=== PATIENT | female | born 1930 | race Two or more races ===

== ENCOUNTER 2016-10-28 13:56 | Inpatient (IN) | payer MEDICARE, MEDICAID ==
[~2016-10-28] VITALS: Ht 165.1 cm; Wt 75.3 kg
[2016-10-28 14:42] LABS: BASOPHILS % (AUTO) 0.3 % (0.0-2.0); EOSINOPHILS % (AUTO) 0.3 % (0.0-6.0); HEMATOCRIT 43 % (33-45); LYMPHOCYTES # (AUTO) 1.3 /CMM (0.8-4.8); LYMPHOCYTES % (AUTO) 17.6 % (20.0-44.0); MEAN CORPUSCULAR HEMOGLOBIN 29 PG (26.0-33.0); MEAN CORPUSCULAR HGB CONC 33 g/dl (31.0-36.0); MEAN CORPUSCULAR VOLUME 89 fL (82-100); MONOCYTES # (AUTO) 0.5 /CMM (0.1-1.30); MONOCYTES % (AUTO) 7.3 % (2.0-12.0); NEUTROPHILS # (AUTO) 5.7 /CMM (1.8-8.9); NEUTROPHILS % (AUTO) 74.5 % (43.0-81.0); PLATELET COUNT (AUTO) 164 /CMM (150-450); RDW COEFFICIENT OF VARIATION 13.8 (11.5-15.0); RED BLOOD CELL COUNT(AUTO) 4.83 MIL/uL (4.0-5.2); WHITE BLOOD COUNT (AUTO) 7.5 K/uL (4.3-11.0)
[2016-10-28] MEDS ORDERED: MAG30ORA PO (14:48)
[2016-10-28] MEDS ORDERED: OXYB5TAB11 PO (14:48)
[2016-10-28] MEDS ORDERED: ACID1TAB12 PO (14:48)
[2016-10-28] MEDS ORDERED: AMIN30LI4 PO (14:48)
[2016-10-28] MEDS ORDERED: GABA-534 PO (14:48)
[2016-10-28] MEDS ORDERED: FAMO20TA8 PO (14:48)
[2016-10-28] MEDS ORDERED: METO25TA20 PO (14:48)
[2016-10-28] MEDS ORDERED: IPRA3AMP IH (14:48)
[2016-10-28] MEDS ORDERED: PSYL3.4P6 PO (14:48)
[2016-10-28] MEDS ORDERED: DIVA500T2 PO (14:48)
[2016-10-28] MEDS ORDERED: QUET25TA PO ×3 (14:48→14:54)
[2016-10-28] MEDS ORDERED: METF500T7 PO (14:48)
[2016-10-28] MEDS ORDERED: ASCO500T9 PO (14:48)
[2016-10-28] MEDS ORDERED: DIVA125T2 PO (14:54)
[2016-10-28] MEDS ORDERED: NA P133E RC (14:55)
[2016-10-28] MEDS ORDERED: ZOLP5TAB2 PO (14:55)
[2016-10-28] MEDS ORDERED: BISA10SU8 RC (14:55)
[2016-10-28] MEDS ORDERED: TRAM50TA2 PO (14:55)
[2016-10-28] MEDS ORDERED: MAGN400O6 PO (14:55)
[2016-10-28] MEDS ORDERED: CITA10TA17 PO (14:55)
[2016-10-28] MEDS ORDERED: DOCU250C75 PO (14:55)
[2016-10-28] MEDS ORDERED: ACET-868 PO (14:55)
[2016-10-28 15:10] LABS: CALCIUM, SERUM 8.5 mg/dL (8.5-10.1); CARBON DIOXIDE 31 mmol/L (21-32); CHLORIDE 110 mmol/L (98-107); CREATININE 0.6 mg/dL (0.6-1.3); GLUCOSE 121 mg/dL (74-106); POTASSIUM 4.4 mmol/L (3.5-5.1); SODIUM SERUM 147 mmol/L (136-145); UREA NITROGEN, BLOOD 37 mg/dL (7-18)
[2016-10-28 15:13] LABS: INR 0.98 (0.87-1.13); PROTHROMBIN TIME 10.2 SECS (9.5-12.7)
[2016-10-28 15:20] LABS: TROPONIN I < 0.017 ng/mL (0.00-0.056)
[2016-10-28 15:25] LABS: ALANINE AMINOTRANSFERASE 30 U/L (12-78); ALBUMIN 2.7 g/dL (3.4-5.0); ALKALINE PHOSPHATASE 81 U/L (46-116); ASPARTATE AMINOTRANSFERASE 37 U/L (15-37); B-TYPE NATRIURETIC PEPTIDE 277 PG/ML (0-125); BILIRUBIN,DIRECT 0.1 mg/dL (0.0-0.2); BILIRUBIN,TOTAL 0.7 mg/dL (0.2-1.0); TOTAL PROTEIN, SERUM 6.5 g/dL (6.4-8.2)
[2016-10-28] MEDS ORDERED: CEFTRIAXONE 1GM BAG (ER ONLY) 50 ML IV ONE ×2 (16:00→16:05)
[2016-10-28] MEDS ORDERED: CLINDAMYCIN 600 MG in IV D5W 100 ML IV ONE (16:00)
[2016-10-28] MEDS ORDERED: IV NS 0.9% 1,000 ML IV PRN (18:30)
[2016-10-28 19:00] VITALS: BP 129/86
[2016-10-28] MEDS ORDERED: HALOPERIDOL LACTATE INJ 5 MG/ML VIAL IM PRN (19:00)
[2016-10-28] MEDS ORDERED: DEXTROSE 50%-WATER 50 ML DISP.SYRIN IV PRN (19:00)
[2016-10-28] MEDS: ALBUTEROL HALF STRENGTH 1.25 MG/3 ML VIAL.NEB NEB SCH ×2 (19:30→23:30)
[2016-10-28 20:00] VITALS: BP 129/86
[2016-10-28] MEDS ORDERED: ENOXAPARIN SODIUM 40 MG/0.4 ML DISP.SYRIN SQ ONE (20:00)
[2016-10-29] VITALS: BP 111/55
[2016-10-29] MEDS: BLOOD SUGAR DIAGNOSTIC 1 EACH STRIP IN SCH ×4 (00:06→17:21)
[2016-10-29] MEDS: INSULIN REGULAR, HUMAN 100 UNIT/ML 3 ML VIAL SQ PRN ×3 (00:29→17:27)
[2016-10-29] MEDS: ALBUTEROL HALF STRENGTH 1.25 MG/3 ML VIAL.NEB NEB SCH ×6 (03:30→23:51)
[2016-10-29 04:00] VITALS: BP 116/60
[2016-10-29 06:51] VITALS: BP 154/66
[2016-10-29 07:14] LABS: HEMATOCRIT 38 % (33-45); HEMOGLOBIN 12.9 g/dL (11.5-14.8); LYMPHOCYTES # (AUTO) 0.6 /CMM (0.8-4.8); LYMPHOCYTES % (AUTO) 6.2 % (20.0-44.0); MEAN CORPUSCULAR HEMOGLOBIN 30 PG (26.0-33.0); MEAN CORPUSCULAR HGB CONC 34 g/dl (31.0-36.0); MEAN CORPUSCULAR VOLUME 89 fL (82-100); MONOCYTES # (AUTO) 0.8 /CMM (0.1-1.30); MONOCYTES % (AUTO) 8.7 % (2.0-12.0); NEUTROPHILS # (AUTO) 8.2 /CMM (1.8-8.9); NEUTROPHILS % (AUTO) 85.1 % (43.0-81.0); PLATELET COUNT (AUTO) 149 /CMM (150-450); RDW COEFFICIENT OF VARIATION 14.5 (11.5-15.0); RED BLOOD CELL COUNT(AUTO) 4.24 MIL/uL (4.0-5.2); WHITE BLOOD COUNT (AUTO) 9.6 K/uL (4.3-11.0)
[2016-10-29 07:56] LABS: CALCIUM, SERUM 8.1 mg/dL (8.5-10.1); CARBON DIOXIDE 30 mmol/L (21-32); CHLORIDE 114 mmol/L (98-107); CREATININE 0.7 mg/dL (0.6-1.3); GLUCOSE 137 mg/dL (74-106); POTASSIUM 3.5 mmol/L (3.5-5.1); SODIUM SERUM 153 mmol/L (136-145); UREA NITROGEN, BLOOD 30 mg/dL (7-18)
[2016-10-29 08:41] LABS: BAND % (MANUAL) 28 % (0.0-5.0); LYMPHOCYTES % (MANUAL) 10 % (16-48); METAMYELOCYTES % 1 % (0-0); MONOCYTES % (MANUAL) 5 % (0-11.0); NEUTROPHILS % (MANUAL) 56 (42-76)
[2016-10-29 10:00] VITALS: BP 154/68
[2016-10-29] MEDS ORDERED: Z GUARD REMEDY 2 OZ OINT TP PRN (10:30)
[2016-10-29] MEDS: Z GUARD REMEDY 2 OZ OINT TP SCH (11:14)
[2016-10-29] MEDS: IV D5W 1,000 ML IV PRN (11:35)
[2016-10-29 16:00] VITALS: BP 123/53
[2016-10-29] MEDS: CEFTRIAXONE 1 G in IV D5W 50 ML IV SCH (16:59)
[2016-10-29] MEDS ORDERED: MISCELLANEOUS MED 1 EA EA XX ONE (19:00)
[2016-10-29 20:00] VITALS: BP 147/66
[2016-10-29] MEDS: AZITHROMYCIN 250 MG in IV D5W 250 ML IV SCH (20:23)
[2016-10-30] MEDS: BLOOD SUGAR DIAGNOSTIC 1 EACH STRIP IN SCH ×4 (00:37→17:24)
[2016-10-30] MEDS: INSULIN REGULAR, HUMAN 100 UNIT/ML 3 ML VIAL SQ PRN ×3 (00:41→17:27)
[2016-10-30] MEDS: ALBUTEROL HALF STRENGTH 1.25 MG/3 ML VIAL.NEB NEB SCH ×6 (03:30→23:19)
[2016-10-30] MEDS: IV D5W 1,000 ML IV PRN (05:38)
[2016-10-30 08:00] VITALS: BP 101/50
[2016-10-30] MEDS: Z GUARD REMEDY 2 OZ OINT TP SCH (08:30)
[2016-10-30] MEDS: CEFTRIAXONE 1 G in IV D5W 50 ML IV SCH (15:56)
[2016-10-30] MEDS: ENOXAPARIN SODIUM 40 MG/0.4 ML DISP.SYRIN SQ SCH (15:57)
[2016-10-30 16:00] VITALS: BP 112/68
[2016-10-30 20:00] VITALS: BP 152/59
[2016-10-30] MEDS: AZITHROMYCIN 250 MG in IV D5W 250 ML IV SCH (20:11)
[2016-10-31] MEDS: IV D5W 1,000 ML IV PRN ×2 (00:11→15:13)
[2016-10-31] MEDS: BLOOD SUGAR DIAGNOSTIC 1 EACH STRIP IN SCH ×4 (00:11→17:02)
[2016-10-31] MEDS: ALBUTEROL HALF STRENGTH 1.25 MG/3 ML VIAL.NEB NEB SCH ×6 (03:09→23:30)
[2016-10-31 08:00] VITALS: BP 121/68
[2016-10-31] MEDS: Z GUARD REMEDY 2 OZ OINT TP SCH (08:15)
[2016-10-31] MEDS: CEFTRIAXONE 1 G in IV D5W 50 ML IV SCH (15:04)
[2016-10-31 16:00] VITALS: BP 107/61
[2016-10-31 20:00] VITALS: BP 116/77
[2016-10-31] MEDS: AZITHROMYCIN 250 MG in IV D5W 250 ML IV SCH (21:11)
[2016-10-31] MEDS: ENOXAPARIN SODIUM 40 MG/0.4 ML DISP.SYRIN SQ SCH (21:12)
[2016-11-01] MEDS: BLOOD SUGAR DIAGNOSTIC 1 EACH STRIP IN SCH ×4 (00:42→16:42)
[2016-11-01] MEDS: ALBUTEROL HALF STRENGTH 1.25 MG/3 ML VIAL.NEB NEB SCH ×6 (03:30→22:42)
[2016-11-01 07:04] LABS: BASOPHILS % (AUTO) 0.3 % (0.0-2.0); EOSINOPHILS # (AUTO) 0.4 /CMM (0.0-0.7); HEMATOCRIT 35 % (33-45); LYMPHOCYTES # (AUTO) 1.3 /CMM (0.8-4.8); LYMPHOCYTES % (AUTO) 16.2 % (20.0-44.0); MEAN CORPUSCULAR HEMOGLOBIN 31 PG (26.0-33.0); MEAN CORPUSCULAR HGB CONC 35 g/dl (31.0-36.0); MEAN CORPUSCULAR VOLUME 88 fL (82-100); MONOCYTES # (AUTO) 0.7 /CMM (0.1-1.30); MONOCYTES % (AUTO) 8.5 % (2.0-12.0); NEUTROPHILS # (AUTO) 5.7 /CMM (1.8-8.9); PLATELET COUNT (AUTO) 156 /CMM (150-450); RDW COEFFICIENT OF VARIATION 13.9 (11.5-15.0); RED BLOOD CELL COUNT(AUTO) 3.93 MIL/uL (4.0-5.2); WHITE BLOOD COUNT (AUTO) 8.1 K/uL (4.3-11.0)
[2016-11-01 07:50] LABS: CALCIUM, SERUM 7.8 mg/dL (8.5-10.1); CARBON DIOXIDE 31 mmol/L (21-32); CHLORIDE 100 mmol/L (98-107); CREATININE 0.6 mg/dL (0.6-1.3); GLUCOSE 105 mg/dL (74-106); POTASSIUM 3.1 mmol/L (3.5-5.1); SODIUM SERUM 138 mmol/L (136-145); UREA NITROGEN, BLOOD 10 mg/dL (7-18)
[2016-11-01] MEDS: Z GUARD REMEDY 2 OZ OINT TP SCH (09:51)
[2016-11-01] MEDS: IV D5W 1,000 ML IV PRN (11:59)
[2016-11-01] MEDS: POTASSIUM CL. PREMIX PERIPHER. 50 ML IV SCH ×4 (12:42→15:24)
[2016-11-01 16:00] VITALS: BP 147/80
[2016-11-01] MEDS: CEFTRIAXONE 1 G in IV D5W 50 ML IV SCH (16:33)
[2016-11-01 20:24] VITALS: BP 141/63
[2016-11-01] MEDS: AZITHROMYCIN 250 MG in IV D5W 250 ML IV SCH (20:33)
[2016-11-01] MEDS: ENOXAPARIN SODIUM 40 MG/0.4 ML DISP.SYRIN SQ SCH (20:34)
[2016-11-02] MEDS: INSULIN REGULAR, HUMAN 100 UNIT/ML 3 ML VIAL SQ PRN ×3 (00:01→17:34)
[2016-11-02] MEDS: ALBUTEROL HALF STRENGTH 1.25 MG/3 ML VIAL.NEB NEB SCH ×4 (03:15→15:11)
[2016-11-02] MEDS: BLOOD SUGAR DIAGNOSTIC 1 EACH STRIP IN SCH ×4 (05:35→17:21)
[2016-11-02 06:00] VITALS: BP 124/70
[2016-11-02 07:38] LABS: CALCIUM, SERUM 8.2 mg/dL (8.5-10.1); CARBON DIOXIDE 31 mmol/L (21-32); CHLORIDE 104 mmol/L (98-107); CREATININE 0.6 mg/dL (0.6-1.3); GLUCOSE 100 mg/dL (74-106); SODIUM SERUM 140 mmol/L (136-145); UREA NITROGEN, BLOOD 8 mg/dL (7-18)
[2016-11-02 08:00] VITALS: BP_SYST 119; BP_DIAS 82; BP_DIAS 83
[2016-11-02] MEDS: Z GUARD REMEDY 2 OZ OINT TP SCH (09:10)
[2016-11-02 16:00] VITALS: BP 133/75
[2016-11-02] MEDS: CEFTRIAXONE 1 G in IV D5W 50 ML IV SCH (16:05)
== END 2016-11-02 18:45 | DRG 177 ==
LOC: ER 13:59 → TELE 18:40 → MED 10-29 10:44
PROVIDERS: ADMIT Internal Medicine; ATTEND Internal Medicine
DX: J69.0 Pneumonitis due to inhalation of food and vomit (principal); G93.40 Encephalopathy, unspecified; J96.91 Respiratory failure, unspecified with hypoxia; N17.9 Acute kidney failure, unspecified; J98.11 Atelectasis; F02.81 Dementia in other diseases classified elsewhere, unspecified severity, with behavioral disturbance; F05 Delirium due to known physiological condition; Z96.653 Presence of artificial knee joint, bilateral; Z91.81 History of falling; Z87.440 Personal history of urinary (tract) infections; Z79.899 Other long term (current) drug therapy; K59.00 Constipation, unspecified; I70.0 Atherosclerosis of aorta; K21.9 Gastro-esophageal reflux disease without esophagitis; E78.5 Hyperlipidemia, unspecified; G30.9 Alzheimer's disease, unspecified; Z79.84 Long term (current) use of oral hypoglycemic drugs; Z98.890 Other specified postprocedural states; M19.90 Unspecified osteoarthritis, unspecified site; F39 Unspecified mood [affective] disorder; T50.905A Adverse effect of unspecified drugs, medicaments and biological substances, initial encounter; Y92.129 Unspecified place in nursing home as the place of occurrence of the external cause; I10 Essential (primary) hypertension
CPT/HCPCS: 36415; 71010-TC; 80048-TC; 80076-TC; 82962-TC; 83605-TC; 83735-TC; 83880; 84484-TC; 85025-TC; 85730-TC; 87040-TC; 87081-TC; 92611-TC; 94799-TC; A4606; J0456; J0696; J1650; J1815; J3480; J3490; J7030; J7040; J7060; J7070; Z7610

== ENCOUNTER 2017-01-12 05:08 | Inpatient (IN) | payer MEDICARE, MEDICAID ==
[~2017-01-12] VITALS: Ht 165.1 cm; Wt 68.5 kg
[~2017-01-12 05:08] MED LIST: ACET-868 PO; ACID1TAB12 PO; AMIN30LI4 PO; ASCO500T9 PO; BISA10SU8 RC; CITA10TA17 PO; DIVA125T2 PO; DIVA500T2 PO; DOCU250C75 PO; FAMO20TA8 PO; GABA-534 PO; IPRA3AMP IH; MAG30ORA PO; MAGN400O6 PO; METF500T7 PO; METO25TA20 PO; NA P133E RC; OXYB5TAB11 PO; PSYL3.4P6 PO; QUET25TA PO; TRAM50TA2 PO; ZOLP5TAB2 PO
--- NOTE | 2017-01-12 05:10 | NUR ---
PT BIB [facility] FOR [facility]. PT STATES SHE WAS SITTING AND THEN FELL. PT DENIES SYNCOPE, DIZZINESS OR LIGHTHEADEDNESS. COMPLAINS OF PAIN AT LEFT BACK, NOTED WITH REDNESS. O2 SAT 98% ON ROOM AIR. BP 162/81, HR 90. PLACED IN BED, GOWNED. AWAITING TO BE SEEN BY .
--- NOTE | 2017-01-12 05:30 | NUR ---
[facility] CALLED FOR TRANSPORT TO [facility] FOR CT SCAN, ETA [id number]
--- NOTE | 2017-01-12 06:00 | NUR ---
SRAVANTHI STARTED, LABS DRAWN & SENT.
--- NOTE | 2017-01-12 06:06 | NUR ---
CXR AT BEDSIDE.
--- NOTE | 2017-01-12 06:13 | NUR ---
CALL WAS [facility] CT IS BACK UP
[2017-01-12 06:15] LABS: BASOPHILS % (AUTO) 0.2 % (0.0-2.0); EOSINOPHILS % (AUTO) 0.4 % (0.0-6.0); HEMATOCRIT 40 % (33-45); HEMOGLOBIN 13.6 g/dL (11.5-14.8); LYMPHOCYTES # (AUTO) 1.1 /CMM (0.8-4.8); LYMPHOCYTES % (AUTO) 8.9 % (20.0-44.0); MEAN CORPUSCULAR HEMOGLOBIN 31 PG (26.0-33.0); MEAN CORPUSCULAR HGB CONC 34 g/dl (31.0-36.0); MEAN CORPUSCULAR VOLUME 91 fL (82-100); MONOCYTES # (AUTO) 0.3 /CMM (0.1-1.30); MONOCYTES % (AUTO) 2.6 % (2.0-12.0); NEUTROPHILS # (AUTO) 10.6 /CMM (1.8-8.9); NEUTROPHILS % (AUTO) 87.9 % (43.0-81.0); PLATELET COUNT (AUTO) 293 /CMM (150-450); RDW COEFFICIENT OF VARIATION 13.7 (11.5-15.0); RED BLOOD CELL COUNT(AUTO) 4.41 MIL/uL (4.0-5.2)
[2017-01-12 06:19] LABS: CALCIUM, SERUM 9.3 mg/dL (8.5-10.1); CARBON DIOXIDE 27 mmol/L (21-32); CHLORIDE 105 mmol/L (98-107); CREATININE 0.7 mg/dL (0.6-1.3); GLUCOSE 175 mg/dL (74-106); POTASSIUM 3.7 mmol/L (3.5-5.1); SODIUM SERUM 142 mmol/L (136-145); UREA NITROGEN, BLOOD 15 mg/dL (7-18)
[2017-01-12 06:20] LABS: INR 0.93 (0.87-1.13); PROTHROMBIN TIME 9.7 SECS (9.5-12.7)
[2017-01-12 06:25] LABS: ALANINE AMINOTRANSFERASE 19 U/L (12-78); ALBUMIN 3.1 g/dL (3.4-5.0); ALKALINE PHOSPHATASE 83 U/L (46-116); ASPARTATE AMINOTRANSFERASE 14 U/L (15-37); BILIRUBIN,DIRECT 0.1 mg/dL (0.0-0.2); BILIRUBIN,TOTAL 0.3 mg/dL (0.2-1.0); TOTAL PROTEIN, SERUM 6.7 g/dL (6.4-8.2)
[2017-01-12 06:26] LABS: TROPONIN I < 0.017 ng/mL (0.00-0.056)
--- NOTE | 2017-01-12 06:30 | NUR ---
PT TO CT
--- NOTE | 2017-01-12 07:35 | NUR ---
PATIENT ON BED. VSS
[2017-01-12] MEDS ORDERED: CRAN425C PO (08:16)
[2017-01-12] MEDS ORDERED: ALBU2.5V38 NEB (08:16)
[2017-01-12] MEDS ORDERED: ACET325T53 PO (08:16)
[2017-01-12] MEDS ORDERED: CHOL200026 PO (08:16)
[2017-01-12] MEDS ORDERED: VITA1TAB18 PO (08:16)
[2017-01-12] MEDS ORDERED: ALBU2.5V38 IH (08:16)
[2017-01-12] MEDS ORDERED: LACT100C2 PO (08:16)
[2017-01-12] MEDS ORDERED: POLY250017 PO (08:16)
[2017-01-12] MEDS ORDERED: SENN8.6T6 PO (08:16)
[2017-01-12] MEDS ORDERED: SERT25TA PO (08:16)
--- NOTE | 2017-01-12 09:45 | NUR ---
DR CLAY PAGED FOR ADMISSION THRU OFFICE
[2017-01-12] MEDS ORDERED: HYDROCODONE/APAP 5/325MG 1 EACH TABLET ONE (09:59)
[2017-01-12] MEDS ORDERED: ONDANSETRON 4 MG TAB.RAPDIS ONE (10:00)
[2017-01-12] MEDS ORDERED: HYDROCODONE/APAP 5/325MG 1 EACH TABLET PO ONE (10:00)
[2017-01-12] MEDS ORDERED: ONDANSETRON 4 MG TAB.RAPDIS SL ONE (10:00)
--- NOTE | 2017-01-12 10:13 | NUR ---
DR. DANNA KOEHLER
--- NOTE | 2017-01-12 10:41 | NUR ---
GAVE REPORT TO TONY RN KETAN ROOM 105 DR CLAY MULTIPLE RIB FX AND PNEUMOTHORAX TRANSFER VIA ACLS PROTOCOL
[2017-01-12 11:35] VITALS: BP 124/64
--- NOTE | 2017-01-12 11:35 | NUR ---
TD RN OPENING RECEIVED PATIENT A/OX1 CONFUSED AT BASELINE. PATIENT STATES PAIN IS WELL CONTROLLED AND NO S/S SOB DIFFICULTY BREATHING. RESPIRATIONS EQUAL AND UNLABORED. PATIENT POSITIONED FOR INCREASED COMFORT BED LOWERED AND LOCKED, RAILS UPX3 FOR SAFETY AND WILL ROUND Q1H OR LESS PER NEEDS. BED ALARM ON. TELE NSR 81
--- NOTE | 2017-01-12 11:40 | NUR ---
TD RN NOTES MESSAGE TO DR CLAY TO NOTIFY OF ADMISSION. PATIENT STABLE AT THIS TIME. NO COMPLAINTS
--- NOTE | 2017-01-12 12:07 | NUR ---
TD RN NOTES DR CLAY AT BEDSIDE. PER MD KEEP PATIENT ON 2LPM NC CONTINUOUSLY FOR RESOLUTION OF PNEUMO. ORDER CHEST XRAY IN 01-13. CONTINUE ALL MEDICATIONS; D/C CRANBERRY EXTRACT. NO DVT PUMPS. SITTER ORDER. MECHANICAL SOFT REGULAR DIET. LOVENOX 40MG SQ DAILY. ORDER PT AND OT EVALS. NO SCD PUMPS. ONLY CALL MD FOR BP 220/110 OR OVER.
[2017-01-12] MEDS: ASCORBIC ACID 500 MG TABLET PO SCH (12:52)
[2017-01-12] MEDS: SERTRALINE HCL 25 MG TABLET PO SCH (12:52)
[2017-01-12] MEDS ORDERED: ALBUTEROL FS 2.5 MG/3 ML VIAL.NEB IH PRN (13:00)
[2017-01-12] MEDS ORDERED: BISACODYL SUPP (10 MG) 10 MG/SUPP.RECT SUPP.RECT RC PRN (13:00)
[2017-01-12] MEDS: CHOLECALCIFEROL 1,000 UNIT TABLET (VIT D3) PO SCH (13:05)
[2017-01-12] MEDS: POLYETHYLENE GLYCOL 3350 17 GM POWD.PACK PO SCH (13:05)
[2017-01-12] MEDS: VITAMIN B COMP W-C 1 TAB TABLET PO SCH (13:05)
[2017-01-12] MEDS: ACETAMINOPHEN 325 MG TABLET PO SCH (13:05)
[2017-01-12] MEDS: LACTOBACILLUS RHAMNOSUS GG 1 EACH CAP.SPRINK PO SCH (13:05)
[2017-01-12 16:00] VITALS: BP_SYST 127; BP_SYST 128; BP_DIAS 76; BP_DIAS 81
--- NOTE | 2017-01-12 16:15 | NUR ---
TD RN NOTES PER DR CLAY NO MEDICATIONS THAT WILL CAUSE SEDATION IN PATIENT. PATIENT IS BECOMING AGGRESSIVE AND NOT LISTENING TO STAFF AND THREATENING. SITTER AT SIDE. PATIENT ASSISTED TO CHAIR REQUESTED AND SITTING IN VIEW OF NURSES REQUESTED.PATIENT IS MORE RELAXED AT THIS TIME.
--- NOTE | 2017-01-12 16:24 | NUR ---
TD RN NOTES PATIENT HITTING STAFF, YELLING, PULLED OUT IV, REFUSING OXYGEN NASAL CANNULA. NOTIFIED MD CLAY
[2017-01-12] MEDS ORDERED: Medication Not On Formulary EA (Cranberry Extract (Cranberry) 425 MG) PO SCH (17:00)
[2017-01-12] MEDS: ACETAMINOPHEN 325 MG TABLET PO PRN (17:49)
[2017-01-12] MEDS: ENOXAPARIN SODIUM 40 MG/0.4 ML DISP.SYRIN SQ SCH (18:24)
--- NOTE | 2017-01-12 19:00 | NUR ---
RN NOTES, RECEIVED PATIENT IN BED, ALET AND ORIENTED TO SELF, BREATHING EVEN AND UNLABORED, NO S/S OF ACUTE DISTRESS OR DISCONFORT NOTED AT THIS TIME, NOTED PATIENT TRYING TO GET UP FROM THE BED, SITTER AT BEDSIDE AT THIS TIME, BED IN LOCKED AND LOWEST POSITION, KEPT DRY AND CLEAN AT ALL TIMES, CALL LIGHT W/I REACH, WILL CONTINUE TO MONITOR CLOSELY.
[2017-01-12] MEDS: ALBUTEROL FS 2.5 MG/3 ML VIAL.NEB NEB SCH (19:06)
--- NOTE | 2017-01-12 19:12 | NUR ---
TD RN CLOSING PATIENT STABLE. SITTER AT SIDE. REFUSING IV ACCESS AT THIS TIME; BECOMES COMBATIVE. PER MD INSERT SALINE LOCK PATIENT WILL ALLOW. WILL ENDORSE TO RN FOR VERO. PATIENT PAIN CONTROLLED WITH PRN TYLENOL. PATIENT INDEPENDENT TURNING IN BED, MIN ASSIST WITH AMBULATION. CARE WILL BE ENDORSED TORN FOR VERO
[2017-01-12 20:00] VITALS: BP 128/65
[2017-01-12] MEDS ORDERED: DEXTROSE 50%-WATER 50 ML DISP.SYRIN IV PRN (20:00)
[2017-01-12 20:42] VITALS: BP 128/65
[2017-01-12] MEDS: SENNOSIDES 8.6 MG TABLET PO SCH (23:31)
[2017-01-12] MEDS: BLOOD SUGAR DIAGNOSTIC 1 EACH STRIP IN SCH (23:36)
[2017-01-13] VITALS: BP 141/55
[2017-01-13 04:00] VITALS: BP 128/58
--- NOTE | 2017-01-13 06:45 | NUR ---
PATIENT IN BED, PROVIDING CARE AT THIS TIME, AWAKE AND ALERT TO SELF, BREATHING EVEN AND UNLABORED NO S/S OF ANY PAIN OR DISCONFORT AT THIS TIME. O2 SATURATION WNL AT ROOM AIR, ALL NEEDS PROVIDED AND ANTICIPATED, CONTINUE WITH SITTER AT BEDSIDE, CONTINUE WITH EPISODES OF TRYIN TO GET OUT FROM BED, KEPT DRY AND CLEAN AT ALL TIMES, BED LOCKED AND LOWEST POSITION, CALL LIGHT W/I REACH. WILL ENDORSE CARE TO NEXT SHIFT.
--- NOTE | 2017-01-13 07:30 | NUR ---
KETAN RN NOTE PATIENT IN BED ,SITTER ST BEDSIDE , AWAKE AND ALERT TO SELF, BREATHING EVEN AND UNLABORED NO S/S OF ANY PAIN OR DISCOMFORT AT THIS TIME ,AT ROOM AIR, NO SOB NOTED ALL NEEDS PROVIDED AND ANTICIPATED CONTINUE WITH EPISODES OF TRYING TO GET OUT FROM BED, KEPT DRY AND CLEAN AT ALL TIMES, BED LOCKED AND LOWEST POSITION, CALL LIGHT W/I REACH. WILL CONT TO MONITOR CLOSELY , ON TELE MONITOR SR 81
[2017-01-13 08:00] VITALS: BP 119/53
[2017-01-13] MEDS: ASCORBIC ACID 500 MG TABLET PO SCH (08:11)
[2017-01-13] MEDS: LACTOBACILLUS RHAMNOSUS GG 1 EACH CAP.SPRINK PO SCH (08:11)
[2017-01-13] MEDS: SERTRALINE HCL 25 MG TABLET PO SCH (08:11)
[2017-01-13] MEDS: POLYETHYLENE GLYCOL 3350 17 GM POWD.PACK PO SCH (08:11)
[2017-01-13] MEDS: CHOLECALCIFEROL 1,000 UNIT TABLET (VIT D3) PO SCH (08:11)
[2017-01-13] MEDS: VITAMIN B COMP W-C 1 TAB TABLET PO SCH (08:12)
[2017-01-13] MEDS: ALBUTEROL FS 2.5 MG/3 ML VIAL.NEB NEB SCH ×2 (08:14→19:52)
[2017-01-13] MEDS: ACETAMINOPHEN 325 MG TABLET PO SCH (08:20)
[2017-01-13] MEDS: BLOOD SUGAR DIAGNOSTIC 1 EACH STRIP IN SCH ×4 (08:20→21:12)
--- NOTE | 2017-01-13 08:34 | NUR ---
KETAN RN NOTE HAVING BREAKFAST , WITH RT HAVING BREAKFAST ,NOT IN ACUTE DISTRESS
--- NOTE | 2017-01-13 08:45 | NUR ---
KETAN RN NOTE SPOKE WITH [facility] PHARMACIST, STATED THAT WILL BRING INSULIN WILL F\U
--- NOTE | 2017-01-13 09:32 | NUR ---
KETAN RN NOTE REFUSED PT AND AMBULATE EMPLANED OF IMPORTANCE WITH WALKING, STILL REFUSED ,WILL MONITOR CLOSELY
--- NOTE | 2017-01-13 10:16 | NUR ---
KETAN RN NOTE NO INSULIN AVAILABLE, CALLED AGAIN TO PHARMACY , WILL F\U ,STILL REFUSE TO DO PT AND WALKING ,WILL TRY AGAINE
--- NOTE | 2017-01-13 11:01 | NUR ---
KETAN RN NOTE UP ON JESSICA, ALL NEEDS ATTENDED, STILL INSULIN NOT AVAILABLE, CALLED PHARMACY
[2017-01-13] MEDS: INSULIN ASPART HUMALOG/NOVOLOG 100 UNIT/ML CARTRIDGE SQ PRN ×3 (11:46→21:14)
[2017-01-13 12:00] VITALS: BP 120/62
--- NOTE | 2017-01-13 12:30 | NUR ---
KETAN RN NOTE WITH PT ABLE TO AMBULATE 50 FEET ,
--- NOTE | 2017-01-13 14:11 | NUR ---
DIRECTOR OF PHYSICIAN PRACTICES NOTE SEEN BY DR CLAY, NOTIFIED THAT PATENT BECAME AGITATED AND COMBATIVE AND URINE HAS STRONG ORDER NO FEVER , NO NEW ORDER GIVEN AT THIS TIME
[2017-01-13 16:00] VITALS: BP 120/68
[2017-01-13] MEDS: ACETAMINOPHEN 325 MG TABLET PO PRN (16:05)
--- NOTE | 2017-01-13 16:59 | NUR ---
ms rn note all needs attended, sitter at bedside ,up on chair, not in distress ,will monitor closely
--- NOTE | 2017-01-13 18:21 | NUR ---
MS RN NOTE ALL NEEDS ATTENDED, NOT IN DISTRESS ,WILL CONT TO MONITOR CLOSELY
[2017-01-13 20:00] VITALS: BP_SYST 109; BP_SYST 140; BP_DIAS 58; BP_DIAS 75
[2017-01-13] MEDS: SENNOSIDES 8.6 MG TABLET PO SCH (21:12)
[2017-01-13] MEDS: ENOXAPARIN SODIUM 40 MG/0.4 ML DISP.SYRIN SQ SCH (21:15)
[2017-01-14 04:00] VITALS: BP 140/75
[2017-01-14 07:10] VITALS: BP 109/58
--- NOTE | 2017-01-14 07:25 | NUR ---
ROAD DESIGN ENGINEER INITIAL NOTE RN RECEIVED PATIENT IN BED ,PATIENT SITTER AT BEDSIDE ,PATIENT SLEEPING, BREATHING EVEN AND UNLABORED NO S/S OF ANY PAIN OR DISCOMFORT AT THIS TIME ,ON ROOM AIR, NO SOB NOTED BED LOCKED AND AT LOWEST POSITION, CALL LIGHT WITHIN REACH. RN WILL CONT TO MONITOR THROUGHOUT THE DAY FOR ANY CHANGES IN CONDITION
[2017-01-14 08:00] VITALS: BP 133/70
[2017-01-14] MEDS: BLOOD SUGAR DIAGNOSTIC 1 EACH STRIP IN SCH ×3 (08:00→17:25)
[2017-01-14] MEDS: ASCORBIC ACID 500 MG TABLET PO SCH (08:01)
[2017-01-14] MEDS: VITAMIN B COMP W-C 1 TAB TABLET PO SCH (08:01)
[2017-01-14] MEDS: SERTRALINE HCL 25 MG TABLET PO SCH (08:01)
[2017-01-14] MEDS: POLYETHYLENE GLYCOL 3350 17 GM POWD.PACK PO SCH (08:01)
[2017-01-14] MEDS: ACETAMINOPHEN 325 MG TABLET PO SCH ×2 (08:01→12:36)
[2017-01-14] MEDS: LACTOBACILLUS RHAMNOSUS GG 1 EACH CAP.SPRINK PO SCH (08:01)
[2017-01-14] MEDS: CHOLECALCIFEROL 1,000 UNIT TABLET (VIT D3) PO SCH (08:05)
[2017-01-14] MEDS: ALBUTEROL FS 2.5 MG/3 ML VIAL.NEB NEB SCH (08:13)
[2017-01-14] MEDS ORDERED: METFORMIN 500 MG TABLET PO SCH (09:00)
--- NOTE | 2017-01-14 09:55 | NUR ---
WOUND CARE CONSULT: PT PRESENTS WITH HUGE BRUISE TO LEFT FLANK AREA & DRY HEALED WOUND TO LEFT LOWER LEG, PRESENT ON ADMISSION. PT ABLE TO ASSIST WITH TURNING AND REPOSITIONING IN BED. PT IS INCONTINENT. SITTER AT BEDSIDE. ALL SKIN PROTECTION MEASURES IN PLACE AND DISCUSSED WITH NURSING STAFF. CURRENT SHEA SCORE IS 16. WILL SEE PRN. VEGA IN AGREEMENT WITH PLAN OF CARE. Addendum: 01/14/17 at 0957 by AMADA SKELTON WNDNU Amended: Links added.
[2017-01-14] MEDS ORDERED: Z GUARD REMEDY 2 OZ OINT TP PRN (10:00)
[2017-01-14] MEDS ORDERED: Z GUARD REMEDY 2 OZ OINT TP SCH (10:00)
--- NOTE | 2017-01-14 13:36 | NUR ---
RN NOTE PATIENT DISCHARGE PAPER WORK DISCUSSED WITH THE PATIENT AND ALSO RN CALLED REPORT TO DIRECTOR MUSIC CHERRY IN REGARDS TO THE PATIENT PLAN OF CARE AND DISCHARGE PAPERWORK. RN WILL TAKE PICTURE OF THE PATIENTS SKIN AND PLACE IN THE CHART GABBIE IS STABLE AT THIS TIME RN WILL CONTINUE TO FOLLOW.
--- NOTE | 2017-01-14 13:45 | NUR ---
RN NOTE RN ATTEMPTED TO CONTACT BOTH OF PATIENT SON , NO ANSWER MESSAGE LEFT ON SON . DR. ERIKA CAIN VOICEMAIL INFORMING HIM OF THE PATIENTS DISCHARGE AND A RETURN NUMBER LEFT IF HE HAS ANY FURTHER QUESTIONS REGARDING THE PATIENTS DISCHARGE.
--- NOTE | 2017-01-14 15:29 | NUR ---
Rn note rn notified that Pt is no longer being discharged , rn will continue to follow, patient is up in chair with the sitter
[2017-01-14 16:00] VITALS: BP 143/72
[2017-01-14] MEDS ORDERED: HALOPERIDOL LACTATE INJ 5 MG/ML VIAL IM PRN (16:30)
--- NOTE | 2017-01-14 16:30 | NUR ---
RN NOTE RN SPOKE WITH PATIENT SON PATIENT SON REGARDING DISCHARGE STATES HIS MOTHER NEED TO BE AIRPLANE ELECTRICAL REPAIRER CONTACTED AURTHER FROM CASE MANAGEMENT DISCHARGE RESCHEDULED FOR 1899. RN PREPARED THE PATIENT FOR DISCHARGE , DISCHARGE INFORMATION GIVEN TO THE PATIENT. SITTER STILL PRESENT
[2017-01-14] MEDS: ACETAMINOPHEN 325 MG TABLET PO PRN ×2 (17:25→20:10)
--- NOTE | 2017-01-14 19:00 | NUR ---
RN NOTE ' PATIENT BEING DISCHARGED NOW TO GO TO [facility] , AMBULANCE INFORMED OF PLAN OF CARE VITALS ASSESSED PATIENT CALM AND COOPERATIVE CURRENTLY NO ISSUES NOTED PATIENT IS STABLE NO SOB NOTED NO DISTRESS NOTED. ALL PAPERS SENT WITH PATIETN PICTURES PLACED IN THE PATIENTS CHART
== END 2017-01-14 19:00 | DRG 199 ==
LOC: ER 05:12 → TELE-TD 11:08 → MEDSG1 01-13 14:34
PROVIDERS: ADMIT Internal Medicine; ATTEND Internal Medicine
DX: S27.0XXA Traumatic pneumothorax, initial encounter (principal); G93.40 Encephalopathy, unspecified; S22.42XA Multiple fractures of ribs, left side, initial encounter for closed fracture; E11.9 Type 2 diabetes mellitus without complications; J90 Pleural effusion, not elsewhere classified; G30.9 Alzheimer's disease, unspecified; F02.81 Dementia in other diseases classified elsewhere, unspecified severity, with behavioral disturbance; E78.5 Hyperlipidemia, unspecified; D72.829 Elevated white blood cell count, unspecified; I10 Essential (primary) hypertension; W19.XXXA Unspecified fall, initial encounter; F29 Unspecified psychosis not due to a substance or known physiological condition; T79.7XXA Traumatic subcutaneous emphysema, initial encounter; Z79.84 Long term (current) use of oral hypoglycemic drugs; Z91.19 Patient's noncompliance with other medical treatment and regimen; Z87.01 Personal history of pneumonia (recurrent); Z79.899 Other long term (current) drug therapy; I70.0 Atherosclerosis of aorta; K59.00 Constipation, unspecified; M19.90 Unspecified osteoarthritis, unspecified site; Z96.653 Presence of artificial knee joint, bilateral; Z98.890 Other specified postprocedural states; W05.0XXA Fall from non-moving wheelchair, initial encounter; Y92.129 Unspecified place in nursing home as the place of occurrence of the external cause; M48.10 Ankylosing hyperostosis [Forestier], site unspecified
CPT/HCPCS: 36415; 70450-TC; 71010-TC; 72128-TC; 73590-TC; 73600-TC; 80048-TC; 80076-TC; 82962-TC; 84484-TC; 85025-TC; 85730-TC; 87081-TC; 97116-TC; 97530-TC; 97535-TC; A4606; J1650; J1815; Q0162; Z7610